=== PATIENT | female | born 1990 | race Caucasian/White ===

== ENCOUNTER 2019-03-03 13:22 | Outpatient (CLI) | payer BC ==
[2019-03-03] MEDS ORDERED: ONDANSETRON 4 MG TAB PO ONE (14:20)
[2019-03-03 14:43] VITALS: BP 114/68; PULSE 93; RESP 18; TEMP 98.7
[2019-03-03 15:03] LABS: Appearance,Urine Cloudy (Clear); Bacteria,Urine Moderate /hpf; Bilirubin,Urine Negative (Negative); Blood,Urine Negative (Negative); Color,Urine Light Yellow; Glucose,Urine (UA) Negative (Negative); Ketones,Urine 2+ (Negative); Leukocyte Esterase,Urine Negative (Negative); Mucus,Urine Rare /hpf; Nitrite,Urine Negative (Negative); Protein,Urine Negative (Negative); RBC,Urine 1 /hpf (0-5); Specific Gravity,Urine 1.012 (1.001-1.035); Squamous Epithelial Cell,Urine 4 /hpf (0-4); Urobilinogen,Urine <2.0 mg/dL (<2.0); WBC,Urine 3 /hpf (0-5)
--- NOTE | 2019-03-10 15:01 | P.MSEPDOC ---
Presenting Problems - Arrival Data Date of Arrival on Unit: 03/03/19 Time of Arrival on Unit: 13:30 Mode of Transport: Ambulatory - Complaint OB-Reason for Admission/Chief Complaint: Possible Onset of Labor Comment: 36 weeks. cramps, nausea.vomitting. cramps, shooting pains low in abd. 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 Review of Systems - Review of Systems Constitutional: No problems Breast: No problems ENT: No problems Cardiovascular: No problems Respiratory: No problems Gastrointestinal: No problems Genitourinary: No problems Musculoskeletal: No problems Neurological: No problems Skin: No problems Vital Signs - Temperature Temperature: 98.7 F Temperature Source: Oral - Pulse Right Brachial Pulse Rate: 93 Pulse Assessment Method: Automatic Cuff - Respirations Respiratory Rate: 18 Oxygen Delivery Method: Room Air O2 Sat by Pulse Oximetry: 97 - Blood Pressure Right Arm Blood Pressure: 114/68 Blood Pressure Mean: 83 Blood Pressure Source: Automatic Cuff Medical Screen Scoring (Pre) - Cervical Exam Dilation: 0 cm = 0 Membranes: Intact - Uterine Contractions Frequency: N/A Duration: N/A Intensity: N/A - Maternal Vital Signs Maternal Temperature: N/A Maternal Blood Pressure: N/A Signs of Preeclampsia: N/A Maternal Respirations: N/A - Maternal Trauma Maternal Trauma: N/A - Assessment - Baby A Baseline FHR: 120 Heart Rate - NICHD Category: Category I (Normal) = 0 NST: Reactive Position: N/A Station: N/A - Total Score - Baby A Total Score - Baby A: 0 - Total Score - Baby B Total Score - Baby B: 0 - Total Score - Baby C Total Score - Baby C: 0 - Level of Risk - Baby A Level of Risk - Baby A: Low (0-5) - Level of Risk - Baby B Level of Risk - Baby B: Low (0-5) - Level of Risk - Baby C Level of Risk - Baby C: Low (0-5) Physician Notification (Pre) - Physician Notified Spoke With: diamond New Order Received: Yes - Notification Comment Comment: discharge home. to keep sched saturday appt Medical Screen Scoring (Post) - Cervical Exam Dilation: 0 cm = 0 Membranes: Intact - Uterine Contractions Frequency: N/A Duration: N/A Intensity: N/A - Maternal Vital Signs Maternal Temperature: N/A Maternal Blood Pressure: N/A Signs of Preeclampsia: N/A Maternal Respirations: N/A - Pain Assessment Pain Scale Used: Numeric (1 - 10) Pain Intensity: 0 - Maternal Trauma Maternal Trauma: N/A - Assessment - Baby A Heart Rate: 120 Heart Rate - NICHD Category: Category I (Normal) = 0 NST: Reactive Position: N/A Station: N/A - Total Score Total Score - Baby A: 0 Total Score - Baby B: 0 Total Score - Baby C: 0 - Post Treatment Level of Risk Post Treatment Level of Risk - Baby A: Low (0-5) Post Treatment Level of Risk - Baby B: N/A Post Treatment Level of Risk - Baby C: N/A Physician Notification (Post) - Physician Notified Physician Notified Date: 03/03/19 Physician Notified Time: 15:58 Spoke With: diamond New Order Received: Yes - Notification Comment Comment: discharge home. to keep sched appt on saturday as scheduled Disposition - Disposition OB Disposition: Discharge to home Discharge Date: 03/03/19 Discharge Time: 16:10 I agree with the RN Medical Screening Exam: Yes Risk & Benefit of care provided described in d/c instruction: Yes Diagnosis: FALSE LABOR BEFORE 37 COMPLETED WEEKS OF GEST, THIRD TRI
== END 2019-03-03 16:10 | disposition home or self-care (01) ==
LOC: FBPOP 13:22
PROVIDERS: ATTEND Obstetrics & Gynecology Obstetrics
DX: O60.03 Preterm labor without delivery, third trimester (principal); Z3A.36 36 weeks gestation of pregnancy
CPT/HCPCS: 59025; 81001; 99213

== ENCOUNTER 2019-03-08 17:30 | Inpatient (IN) | payer BC ==
[2019-03-08] MEDS ORDERED: CITRIC ACID-SODIUM CITRATE 15 ML CUP PO ONE (19:51)
--- NOTE | 2019-03-08 20:00 | P.HPOB ---
History of Present Illness H&P Date: 03/08/19 Chief Complaint: IUP at 36 5/7, active labor, history of 1 This is a pleasant 28-year-old 2 para 1001 at 36-5/7 weeks, estimated due date 03/31/19 based on last menstrual period and consistent with first trimester ultrasound. Patient has a history of a primary for failure to progress, she is known Rh- and receive program at 20 weeks, in addition she has a history of significant depression and we'll start Zoloft prior to discharge. Patient has been receiving routine care with myself since approximately 9 weeks of gestation. Patient has been noting contractions for about 1 week states they got stronger today therefore she presented to labor and delivery. Patient denies vaginal bleeding or loss of fluid and notes good movement. While the patient was here on labor and delivery for monitoring patient was noted to make cervical change. On bloodwork should a blood type of A-, rubella immune, RPR nonreactive, hepatitis B surface antigen negative, HIV negative, she did pass her 1 hour gestational diabetes screen, receive program on 01/07/19, Tdap Received on 02/07/19, group beta strep negative on 02/25. Review of Systems Constitutional: Denies chills, Denies fatigue, Denies fever Ears, nose, mouth and throat: Denies headache Cardiovascular: Reports leg edema Respiratory: Denies cough, Denies dyspnea Gastrointestinal: Denies constipation, Denies diarrhea, Denies nausea, Denies vomiting Genitourinary: Reports Past Medical History History of Any Multi-Drug Resistant Organisms: None Reported Smoking Status: Never smoker Medications and Allergies Home Medications Medication Instructions Recorded Confirmed Type Acetaminophen Tab [Tylenol Tab] 650 mg PO Q6H PRN 03/03/19 03/08/19 History Ferrous Sulfate [Feosol] 325 mg PO BID 03/03/19 03/08/19 History Pnv,Calcium 72/Iron/Folic Acid 1 each PO DAILY 03/03/19 03/08/19 History [ Plus Tablet] Allergies Allergy/AdvReac Type Severity Reaction Status Date / Time No Known Allergies Allergy Verified 03/08/19 17:44 Exam Osteopathic Statement: *. No significant issues noted on an osteopathic structural exam other than those noted in the History and Physical/Consult. Intake and Output 03/08/19 03/08/19 03/08/19 06:59 14:59 22:59 Other: Weight 83.915 kg On targeted physical exam this is a well-nourished well-developed female in no acute distress, breathing is noted to be nonlabored heart has a regular rate and rhythm abdomen is noted be gravid and appropriate for gestational age, heart tones returned be category 1 and she is byron every 3 minutes, on cervical exam she was 2-3 cms, after an hour of observation. Assessment and Plan (1) 36 weeks gestation of Current Visit: Yes Status: Acute Code(s): Z3A.36 - 36 WEEKS GESTATION OF SNOMED Code(s): 99957616 (2) H/O section Current Visit: Yes Status: Acute Code(s): Z98.891 - HISTORY OF UTERINE SCAR FROM PREVIOUS SURGERY SNOMED Code(s): 399137787 (3) Active labor Current Visit: Yes Status: Acute Code(s): LUO9697 - SNOMED Code(s): 000541232 Plan: Will plan to proceed with repeat section, surgery is reviewed questions are answered patient states understanding and informed consent is obtained.
[2019-03-08] MEDS: LACTATED RINGERS 1,000 ML IV SCH ×2 (20:15→22:26)
[2019-03-08 20:30] VITALS: BMI 34.9
[2019-03-08 20:35] LABS: Basophils % (A) 0 %; Eosinophils # (A) 0.1 k/uL (0-0.7); Eosinophils % (A) 1 %; HCT 34.2 % (34.0-46.0); HGB 11.4 gm/dL (11.4-16.0); Lymphocytes # (A) 1.8 k/uL (1.0-4.8); Lymphocytes % (A) 16 %; MCH 31.6 pg (25.0-35.0); MCHC 33.3 g/dL (31.0-37.0); MCV 94.7 fL (80.0-100.0); Mean Platelet Volume 9.5; Monocytes # (A) 0.7 k/uL (0-1.0); Monocytes % (A) 7 %; Neutrophils # (A) 8.2 k/uL (1.3-7.7); Neutrophils % (A) 74 %; Platelet Count 183 k/uL (150-450); RBC 3.61 m/uL (3.80-5.40); RDW 15.1 % (11.5-15.5)
[2019-03-08] MEDS ORDERED: PHENYLEPHRINE-0.9% NACL SYG 1 MG/10 ML SYRINGE ONE (20:41)
[2019-03-08] MEDS ORDERED: NALBUPHINE 10 MG/ML (1 ML AMP) ONE (20:41)
[2019-03-08] MEDS ORDERED: LACTATED RINGERS 1,000 ML BAG IV ONE (20:41)
[2019-03-08] MEDS ORDERED: ONDANSETRON 4 MG/2 ML VIAL ONE (20:41)
[2019-03-08] MEDS ORDERED: MORPHINE SULFATE (PF) 0.3 MG/0.3 ML SYR ONE (20:41)
[2019-03-08] MEDS ORDERED: OXYTOCIN 10 UNIT/ML 1 ML VIAL ONE (20:41)
[2019-03-08] MEDS ORDERED: IBUPROFEN IV 800 MG in SODIUM CHLORIDE 0.9% 250 ML IV ONE (21:30)
--- NOTE | 2019-03-08 21:38 | P.OP ---
Date of Procedure: 03/08/19 Preoperative Diagnosis: IUP at 36 and 5/sevenths weeks, active labor, history of 1 desires repeat Postoperative Diagnosis: Same Procedure(s) Performed: Repeat section Anesthesia: spinal Surgeon: Oralia Irvin Gear Generator Set Up Operator #1: Ruslan Nunes Estimated Blood Loss (ml): 500 IV fluids (ml): 800 Urine output (ml): 50 Condition: stable Disposition: PACU Indications for Procedure: Active labor Operative Findings: Normal uterus tubes and ovaries were appreciated, viable female delivered at 2104, weight of 6 lbs. 8 oz. with Apgars of 8 and 8 at one and 5 minutes respectively. Description of Procedure: The patient was prepped and draped in the usual fashion after spinal anesthesia was administered by the anesthesia department. A Pfannenstiel incision was made and extended of the abdominal cavity without difficulty. The bladder peritoneum was elevated and incised and reflected distally. A 2 cm incision was made in the transverse plane of the lower uterine segment to enter the uterus at which time clear fluid was noted. The incision was extended in both directions using the bandage scissors. The head was encountered within the field and delivered up and through the incision where the nose and mouth were thoroughly suctioned. Remainder of the infant was delivered onto the surgical field where the cord was doubly clamped, cut, and the was passed for resuscitative measures with weight and Apgars as noted above. A segment of cord was then doubly clamped, and cut. The placenta was delivered manually, intact, and was g rossly normal with a grossly normal three-vessel cord. The uterus was exteriorized and the interior cavity of the uterus swept of any remaining placental and membranous fragments with a laparotomy sponge. The margins of the incision were grasped with Allis clamps and the incision closed in 2 layers. First layer was a running locking layer of 0 Vicryl from margin to margin followed by a second layer of imbricating 0 Vicryl from margin to margin. Any small points of bleeding were then made hemostatic with the Bovie. Once hemostasis was achieved, the posterior cul-de-sac was suctioned with a guard and the uterine and ovarian findings are as noted above. The uterus was replaced within the abdominal cavity and the gutters swept of any remaining blood fluid or clot. The incision was again reexamined and hemostasis was noted to be excellent. Any small point of bleeding were made hemostatic with the Bovie. Once hemostasis was achieved the parietal peritoneum was loosely reapproximated. The layer of muscles were examined and made hemostatic with the Bovie. Attention was then turned to the fascia which was closed with 2 running stitches of 0 Vicryl proceeding from the lateral margins to the midpoint. The subcutaneous tissues were irrigated, made hemostatic with the Bovie, and reapproximated with a running stitch of 30 Vicryl. The skin was reapproximated with 4-0 Vicryl. Estimated blood loss for the case was approximately 500 mL. All sponge instrument and needle counts are correct. There were no complications. The patient tolerated the procedure well and proceeded to the recovery room in stable condition. Both mother and are resting comfortably in recovery.
[2019-03-08] MEDS ORDERED: diphenhydrAMINE 50 MG CAP PO PRN (21:39)
[2019-03-08] MEDS ORDERED: ONDANSETRON 4 MG/2 ML VIAL IVP PRN (21:39)
[2019-03-08] MEDS ORDERED: NALOXONE 0.4 MG/ML 1 ML VIAL IV PRN (21:39)
[2019-03-08] MEDS ORDERED: METOCLOPRAMIDE 5 MG/ML 2 ML VIAL IVP PRN (21:39)
[2019-03-08] MEDS ORDERED: OXYTOCIN 20 UNITS/1000 ML NS 1,000 ML IV SCH (21:39)
[2019-03-08] MEDS ORDERED: ZOLPIDEM 5 MG TAB PO PRN (21:39)
[2019-03-08] MEDS ORDERED: HYDROcodone/APAP 5-325MG 1 EACH TAB PO PRN (21:39)
[2019-03-08] MEDS ORDERED: diphenhydrAMINE 25 MG CAP PO PRN (21:39)
[2019-03-08] MEDS ORDERED: diphenhydrAMINE 50 MG/ML 1 ML VIAL IVP PRN ×2 (21:39)
[2019-03-08] MEDS ORDERED: ACETAMINOPHEN IV (For NPO) 1,000 MG in EMPTY BAG 1 BAG IVPB ONE (22:00)
[2019-03-08] MEDS: SENNOSIDES-DOCUSATE SODIUM 1 EACH TAB PO SCH (22:26)
[2019-03-09] MEDS: LACTATED RINGERS 1,000 ML IV SCH ×3 (00:51→20:34)
[2019-03-09 07:49] LABS: Basophils % (A) 0 %; Eosinophils % (A) 0 %; HCT 29.8 % (34.0-46.0); Lymphocytes # (A) 1.3 k/uL (1.0-4.8); Lymphocytes % (A) 11 %; MCH 29.6 pg (25.0-35.0); MCV 95.5 fL (80.0-100.0); Mean Platelet Volume 9.8; Monocytes # (A) 0.5 k/uL (0-1.0); Monocytes % (A) 4 %; Neutrophils # (A) 10.2 k/uL (1.3-7.7); Neutrophils % (A) 84 %; Platelet Count 171 k/uL (150-450); RBC 3.12 m/uL (3.80-5.40); RDW 14.7 % (11.5-15.5); WBC 12.2 k/uL (3.8-10.6)
[2019-03-09 07:55] LABS: HGB 9.2 gm/dL (11.4-16.0)
--- NOTE | 2019-03-09 08:22 | P.PN ---
Progress Note - Text Progress Note Date: 03/09/19 Patient without complaints. Ambulating without weakness or paresthesia. Pain controlled. Denies headache. Spinal site clean and dry A/P POD#1 s/p with spinal duramorph - doing well
[2019-03-09] MEDS: PRENATAL VIT-IRON-FOLIC ACID 1 EACH CAP PO SCH (09:19)
[2019-03-09] MEDS: SENNOSIDES-DOCUSATE SODIUM 1 EACH TAB PO SCH ×2 (09:19→20:35)
--- NOTE | 2019-03-09 09:29 | P.PNOBGPC ---
Subjective - Subjective Principal diagnosis: POD 1 RCS Interval history: Patient is postop day 1 status post repeat as she presented in labor at 36 and 5/sevenths weeks. Patient states she has been able to ambulate without difficulty. We are awaiting a spontaneous void. Lochia is minimal at this time. She states her pain is well-controlled. She has had a few episodes of nausea and vomiting this morning. Patient reports: Reports appetite normal, Reports pain well controlled, Reports ambulating normally, Reports nauseated [place]: in NICU (On high flow oxygen) Objective - Vital Signs Latest vital signs: Vital Signs Temp Pulse Resp BP Pulse Ox 03/09/19 08:00 97.9 F 69 16 97/46 03/09/19 04:00 98 F 73 15 99/54 03/08/19 23:33 69 16 98/55 99 03/08/19 23:03 98 F 70 16 96/55 100 03/08/19 22:33 71 16 99/50 100 03/08/19 22:18 73 16 97/55 100 03/08/19 22:03 83 15 102/53 98 03/08/19 21:48 73 16 97/52 97 03/08/19 21:33 97.7 F 79 16 106/51 98 03/08/19 19:51 98 F 91 15 123/60 98 Intake and Output 03/08/19 03/09/19 03/09/19 22:59 06:59 14:59 Intake Total 800 Output Total 550 650 Balance 250 -650 Intake: IV 800 Output: Urine 50 600 Uretheral (Lazar) 600 Emesis 50 Estimated Blood Loss 500 Other: # Voids 0 Weight 83.915 kg - Exam Extremities: Present: normal, edema Abdomen: Present: normal appearance, soft Incision: Present: normal, dry, intact Uterus: Present: normal, firm - Labs Labs: Abnormal Lab Results - Last 24 Hours (Table) 03/08/19 03/09/19 Range/Units 20:12 07:05 WBC 11.0 H 12.2 H (3.8-10.6) k/uL RBC 3.61 L 3.12 L (3.80-5.40) m/uL Hgb 9.2 L D (11.4-16.0) gm/dL Hct 29.8 L (34.0-46.0) % Neutrophils # 8.2 H 10.2 H (1.3-7.7) k/uL Assessment and Plan (1) 36 weeks gestation of Current Visit: Yes Status: Acute Code(s): Z3A.36 - 36 WEEKS GESTATION OF SNOMED Code(s): 18424629 (2) H/O section Current Visit: Yes Status: Acute Code(s): Z98.891 - HISTORY OF UTERINE SCAR FROM PREVIOUS SURGERY SNOMED Code(s): 582326841 (3) Active labor Current Visit: Yes Status: Acute Code(s): IBZ7837 - SNOMED Code(s): 972786048 (4) S/P section Current Visit: Yes Status: Acute Code(s): Z98.891 - HISTORY OF UTERINE SCAR FROM PREVIOUS SURGERY SNOMED Code(s): 700555899 (5) Acute blood loss anemia Current Visit: Yes Status: Acute Code(s): D62 - ACUTE POSTHEMORRHAGIC ANEMIA SNOMED Code(s): 715226631 Plan: Will treat her nausea and vomiting with IV Zofran, advance diet slowly. Await spontaneous void and encourage increased ambulation. Will plan to take her bandage off around lunchtime today and allow her to get into the shower.
[2019-03-09] MEDS ORDERED: Rhogam IMMUNE GLOBULIN 1,500 UNIT/1 ML IM ONE (13:19)
[2019-03-09] MEDS: SERTRALINE 50 MG TAB PO SCH (20:00)
[2019-03-09] MEDS: IBUPROFEN 600 MG TAB PO PRN (20:00)
--- NOTE | 2019-03-10 08:44 | P.PNOBGPC ---
Subjective - Subjective Principal diagnosis: POD 2 RCS Interval history: Patient has done well since surgery. On this postop day #2 she is ambulating and voiding without difficulty. She is tolerating a regular diet without nausea or vomiting. She states her pain is well-controlled. remains in the nursery on high flow oxygen. Patient reports: Reports appetite normal, Reports voiding normally, Reports pain well controlled, Reports ambulating normally : doing well (In the nursery on high flow oxygen) Objective - Vital Signs Latest vital signs: Vital Signs Temp Pulse Resp BP Pulse Ox 03/10/19 00:00 98 F 80 15 99/51 03/09/19 20:00 98 F 94 15 102/74 98 03/09/19 16:00 98.3 F 71 18 101/54 03/09/19 12:00 98.2 F 68 16 98/49 98 Intake and Output 03/09/19 03/10/19 03/10/19 22:59 06:59 14:59 Output Total 1999 400 Balance -2000 -400 Output: Urine 1999 400 Other: # Voids 1 1 - Exam Extremities: Present: normal Abdomen: Present: normal appearance, soft Incision: Present: normal, dry, intact Uterus: Present: normal, firm Assessment and Plan (1) 36 weeks gestation of Current Visit: Yes Status: Acute Code(s): Z3A.36 - 36 WEEKS GESTATION OF SNOMED Code(s): 14033167 (2) H/O section Current Visit: Yes Status: Acute Code(s): Z98.891 - HISTORY OF UTERINE SCAR FROM PREVIOUS SURGERY SNOMED Code(s): 516724093 (3) Active labor Current Visit: Yes Status: Acute Code(s): BAW9723 - SNOMED Code(s): 576115605 (4) S/P section Current Visit: Yes Status: Acute Code(s): Z98.891 - HISTORY OF UTERINE SCAR FROM PREVIOUS SURGERY SNOMED Code(s): 078459043 (5) Acute blood loss anemia Current Visit: Yes Status: Acute Code(s): D62 - ACUTE POSTHEMORRHAGIC ANEMIA SNOMED Code(s): 957358113 Plan: Patient continues to do well and we will continue routine postoperative care.
[2019-03-10] MEDS: IBUPROFEN 600 MG TAB PO PRN ×2 (09:05→15:36)
[2019-03-10] MEDS: SENNOSIDES-DOCUSATE SODIUM 1 EACH TAB PO SCH ×2 (09:06→20:15)
[2019-03-10] MEDS: PRENATAL VIT-IRON-FOLIC ACID 1 EACH CAP PO SCH (09:07)
--- NOTE | 2019-03-10 15:10 | P.MSEPDOC ---
Presenting Problems - Arrival Data Date of Arrival on Unit: 03/08/19 Time of Arrival on Unit: 20:00 Mode of Transport: Ambulatory - Complaint OB-Reason for Admission/Chief Complaint: Possible Onset of Labor Medical History - Information : 2 Para: 1 Term: 1 : 0 Abortions: Spontaneous or Elective: 0 Number of Living Children: 1 - Gestational Age Gestational Age by KANDI (wks/days): 36 Weeks and 6 Days - History Complications: Prior Review of Systems - Review of Systems Constitutional: No problems Breast: No problems ENT: No problems Cardiovascular: No problems Respiratory: No problems Gastrointestinal: No problems Genitourinary: No problems Musculoskeletal: No problems Neurological: No problems Skin: No problems Vital Signs - Temperature Temperature: 97.9 F Temperature Source: Oral - Pulse Pulse Oximetery Pulse Rate: 88 Pulse Assessment Method: Automatic Cuff - Respirations Respiratory Rate: 16 Oxygen Delivery Method: Room Air - Blood Pressure Right Arm Blood Pressure: 116/70 Blood Pressure Mean: 85 Blood Pressure Source: Automatic Cuff Medical Screen Scoring (Pre) - Cervical Exam Dilation: 1-3 cm = 1 Effacement: More than 50% = 2 Membranes: Intact - Uterine Contractions Frequency: Scheduled / = 6 Duration: > 40 seconds = 2 Intensity: N/A - Maternal Vital Signs Maternal Temperature: N/A Maternal Blood Pressure: N/A Signs of Preeclampsia: N/A Maternal Respirations: N/A - Maternal Trauma Maternal Trauma: N/A - Assessment - Baby A Baseline FHR: 140 Heart Rate - NICHD Category: Category I (Normal) = 0 NST: Reactive Position: N/A Station: N/A - Total Score - Baby A Total Score - Baby A: 11 - Total Score - Baby B Total Score - Baby B: 11 - Total Score - Baby C Total Score - Baby C: 11 - Level of Risk - Baby A Level of Risk - Baby A: High (10+) - Level of Risk - Baby B Level of Risk - Baby B: High (10+) - Level of Risk - Baby C Level of Risk - Baby C: High (10+) Physician Notification (Pre) - Physician Notified Physician Notified Date: 03/08/19 Physician Notified Time: 19:45 Physician/Practitioner Notifed:: Dr Irvin Disposition - Disposition OB Disposition: Admit, LDRP Suite I agree with the RN Medical Screening Exam: Yes Risk & Benefit of care provided described in d/c instruction: Yes Diagnosis: OTHER SPECIFIED COMPLICATIONS OF LABOR AND DELIVERY
[2019-03-10] MEDS: ACETAMINOPHEN TAB 325 MG TAB PO PRN (20:14)
[2019-03-10] MEDS: SERTRALINE 50 MG TAB PO SCH (20:15)
[2019-03-11] MEDS: IBUPROFEN 600 MG TAB PO PRN ×2 (00:34→13:14)
[2019-03-11] MEDS: PRENATAL VIT-IRON-FOLIC ACID 1 EACH CAP PO SCH (08:04)
[2019-03-11] MEDS: ACETAMINOPHEN TAB 325 MG TAB PO PRN (08:04)
--- NOTE | 2019-03-11 08:35 | P.DS ---
Providers Date of admission: 03/08/19 19:50 Expected date of discharge: 03/11/19 Attending physician: Oralia Irvin Primary care physician: Stated None - Discharge Diagnosis(es) (1) 36 weeks gestation of Current Visit: Yes Status: Acute (2) H/O section Current Visit: Yes Status: Acute (3) Active labor Current Visit: Yes Status: Acute (4) S/P section Current Visit: Yes Status: Acute (5) Acute blood loss anemia Current Visit: Yes Status: Acute Hospital Course: This is a pleasant 28-year-old 2 para 1001 at 36-5/7 weeks when she presented to labor and delivery with complaints of regular painful contractions. Patient was noted to make cervical change therefore she was taken for repeat section. Patient underwent section without difficulty for further details on the please see the operative report. Patient de livered a viable female at 2104, weight of 6 lbs. 8 oz. with Apgars of 8 and 8 at one and 5 minutes respectively. Patient's postoperative course has been essentially uneventful. On this postop day #3 she is ambulating and voiding without difficulty she is tolerating a regular diet without nausea or vomiting. She states her lochia is minimal. She does wish discharge home. remains in the nursery at this time on high flow oxygen but doing well and weaning off of the oxygen currently. Patient Condition at Discharge: Good Plan - Discharge Summary New Discharge Prescriptions: No Action Ferrous Sulfate [Feosol] 325 mg PO BID Acetaminophen Tab [Tylenol Tab] 650 mg PO Q6H PRN PRN Reason: Pain Pnv,Calcium 72/Iron/Folic Acid [ Plus Tablet] 1 each PO DAILY Discharge Medication List Acetaminophen Tab [Tylenol Tab] 650 mg PO Q6H PRN 03/03/19 [History] Ferrous Sulfate [Feosol] 325 mg PO BID 03/03/19 [History] Pnv,Calcium 72/Iron/Folic Acid [ Plus Tablet] 1 each PO DAILY 03/03/19 [History] Follow up Appointment(s)/Referral(s): Oralia Irvin DO [Doctor of Osteopathic Medicine] - 1 Week Patient Instructions/Handouts: (DC), (GEN) Discharge Disposition: HOME SELF-CARE
[2019-03-11 10:02] VITALS: BP 130/73; PULSE 86; RESP 18; TEMP 99.2
== END 2019-03-11 13:45 | disposition home or self-care (01) | DRG 787 ==
LOC: FBPOP 17:30 → 4FBP 19:50
PROVIDERS: ADMIT Obstetrics & Gynecology Obstetrics; ATTEND Obstetrics & Gynecology Obstetrics
PROC: 10D00Z1 Extraction of Products of Conception, Low, Open Approach (ICD-10-PCS; principal; 2019-03-08 20:57)
DX: O34.211 Maternal care for low transverse scar from previous cesarean delivery (principal); D62 Acute posthemorrhagic anemia; O99.02 Anemia complicating childbirth; O26.893 Other specified pregnancy related conditions, third trimester; Z67.11 Type A blood, Rh negative; Z37.0 Single live birth; Z3A.36 36 weeks gestation of pregnancy; Z86.32 Personal history of gestational diabetes
CPT/HCPCS: 59025; 85025; 85461; 86850; 86900; 86901; 88307; 99213

== ENCOUNTER → 2022-03-09 | Outpatient (CLI) | payer BC ==
[2022-03-09 18:17] LABS: HCT 39.8 % (37.2-46.3); HGB 13.1 g/dL (12.0-15.0); MCH 31.7 pg (27.0-32.0); MCHC 32.9 g/dL (32.0-37.0); MCV 96.4 fL (80.0-97.0); Mean Platelet Volume 11.4 fL (9.5-12.2); NRBC Per 100 WBC 0 /100 WBCS (0.0-0.0); Platelet Count 283 X 10*3/uL (140-440); RBC 4.13 X 10*6/uL (4.10-5.20); RDW 12.8 % (11.5-14.5); WBC 6.75 X 10*3/uL (4.50-10.00)
== END | disposition home or self-care (01) ==
LOC: LABPAT 11:11
PROVIDERS: ATTEND Obstetrics & Gynecology Obstetrics
DX: Z01.812 Encounter for preprocedural laboratory examination (principal); N94.6 Dysmenorrhea, unspecified; N92.0 Excessive and frequent menstruation with regular cycle
CPT/HCPCS: 85027